=== PATIENT | male | born 1985 | race American Indian/Alaskan Native ===

== ENCOUNTER 2021-12-10 08:25 | Emergency (ER) | payer SELFPAY ==
[2021-12-10 10:20] VITALS: BP 122/75
--- NOTE | 2021-12-10 10:31 | Emergency Department Report ---
Chief Complaint: Nausea/Vomiting/Diarrhea Stated Complaint: VOMITING/SPOTS ON HANDS X 2 WEEKS Time Seen by Provider: 12/10/21 10:30 - HPI History of Present Illness: here with chronic appearing rash on b hands and n/v - last time yesterday requesting work note ambulatory and nad - ROS Review of Systems: rash- chronic n/v yesterday - Exam Vital Signs: Vital Signs 12/10/21 10:19 Temperature 98.0 F Pulse Rate 68 Respiratory 18 Rate Blood Pressure 122/75 [Right] O2 Sat by Pulse 99 Oximetry Physical Exam: a/o chronic appearing rash b hands abd snt no penile dc no back pain no fever or chills taking po MSE screening note: Focused history and physical exam performed. Due to findings the following was ordered: mse to pcp verbalizes understanding of plan of care ED Disposition for MSE Clinical Impression: Wellness examination Disposition: 01 HOME / SELF CARE / HOMELESS Is pt being admited?: No Does the pt Need Aspirin: No Condition: Stable Referrals: [facility] [Outside] - 3-5 Days Forms: Work/School Release Form(ED) Time of Disposition: 10:31
== END 2021-12-10 10:47 | disposition home or self-care (01) ==
LOC: ED 08:25
DX: Z00.00 Encounter for general adult medical examination without abnormal findings (principal); R21 Rash and other nonspecific skin eruption
CPT/HCPCS: 99282

== ENCOUNTER 2022-01-18 21:42 | Emergency (ER) | payer SELFPAY ==
--- NOTE | 2022-01-18 22:35 | XRay Report ---
LEFT FOOT 3 VIEWS INDICATION / CLINICAL INFORMATION: INJURY. COMPARISON: None available. FINDINGS: BONES / JOINT(S): No acute fracture or subluxation. No significant arthritis. SOFT TISSUES: No significant abnormality. ADDITIONAL FINDINGS: None. IMPRESSION: 1. No acute findings. Signer Name: Pj Browning MD Signed: 01/18/2022 10:31 PM Workstation Name: [id number]
[2022-01-19] MEDS ORDERED: ACETAMINOPHEN 325 MG TAB PO ONE (01:34)
[2022-01-19] MEDS ORDERED: IBUPROFEN 400 MG TAB PO ONE (01:34)
--- NOTE | 2022-01-19 01:38 | Emergency Department Report ---
ED Lower Extremity HPI - General Chief Complaint: Extremity Injury, Lower Stated Complaint: LT FOOT PAIN Time Seen by Provider: 01/19/22 01:14 Source: patient Mode of arrival: Ambulatory Limitations: No Limitations - History of Present Illness Initial Comments: The patient is a 36-year-old gentleman who presents to the ER today with a complaint of nontraumatic foot pain. The foot pain is on the plantar aspect of the left foot. He has not taken any pain medication. He denies additional injuries and complaints -: days(s) Injury: Foot: Left Type of Injury: unknown Severity: mild Worsens With: nothing - Related Data Allergies Allergy/AdvReac Type Severity Reaction Status Date / Time No Known Allergies Allergy Unverified 12/10/21 10:16 ED Review of Systems ROS: Stated complaint: LT FOOT PAIN Other details as noted in HPI Comment: All other systems reviewed and negative Musculoskeletal: as per HPI, other (Left foot pain) ED Physical Exam - General Limitations: No Limitations General appearance: alert, in no apparent distress - Head Head exam: Present: atraumatic, normocephalic - Eye Eye exam: Present: normal appearance, EOMI. Absent: nystagmus - ENT ENT exam: Present: normal exam, normal orophraynx, mucous membranes moist, normal external ear exam - Neck Neck exam: Present: normal inspection, full ROM. Absent: tenderness, meningismus - Respiratory Respiratory exam: Present: normal lung sounds bilaterally. Absent: respiratory distress, wheezes, rales, rhonchi, stridor, decreased breath sounds - Cardiovascular Cardiovascular Exam: Present: normal rhythm, bradycardia, normal heart sounds. Absent: tachycardia, irregular rhythm, systolic murmur, diastolic murmur, rubs, gallop - GI/Abdominal GI/Abdominal exam: Present: soft. Absent: distended, tenderness, guarding, rebound, rigid, pulsatile mass - Rectal Rectal exam: Present: deferred - Extremities Exam Extremities exam: Present: normal inspection, full ROM, normal capillary refill, other (2+ pulses noted in the bilateral upper and lower extremities. There is no palpable cord. negative Homans sign. Muscular compartments are soft. The pelvis is stable.). Absent: pedal edema, calf tenderness - Back Exam Back exam: Present: normal inspection, full ROM. Absent: tenderness, CVA tenderness (R), CVA tenderness (L), paraspinal tenderness, vertebral tenderness - Neurological Exam Neurological exam: Present: alert, oriented X3, normal gait, other (No facial droop. Tongue midline. Extraocular movements intact bilaterally. Facial sensation intact to light touch in V1, V2, V3 distribution bilaterally. 5 and a 5 strength in 4 extremities. Sensation intact to light touch in 4 extremities.). Absent: motor sensory deficit - Psychiatric Psychiatric exam: Present: normal affect, normal mood - Skin Skin exam: Present: warm, dry, intact, normal color. Absent: rash ED Course Vital Signs 01/18/22 01/19/22 21:58 02:41 Temperature 97.9 F Pulse Rate 56 L 62 Respiratory 18 12 Rate Blood Pressure 119/78 Blood Pressure 122/72 [Right] O2 Sat by Pulse 99 100 Oximetry ED Lower Extremity MDM - Lab Data Vital Signs 01/18/22 21:58 Temperature 97.9 F Pulse Rate 56 L Respiratory 18 Rate Blood Pressure 119/78 O2 Sat by Pulse 99 Oximetry - Radiology Data Radiology results: pending, report reviewed, image reviewed LEFT FOOT 3 VIEWS INDICATION / CLINICAL INFORMATION: INJURY. COMPARISON: None available. FINDINGS: BONES / JOINT(S): No acute fracture or subluxation. No significant arthritis. SOFT TISSUES: No significant abnormality. ADDITIONAL FINDINGS: None. IMPRESSION: 1. No acute findings. Signer Name: Pj Browning MD Signed: 01/18/2022 9:31 PM - Medical Decision Making Differential diagnosis, including but not limited to: Sprain, strain, plantar fasciitis, foot pain Assessment and plan: 36-year-old gentleman, who is afebrile, with reassuring vital signs, clinically sober, with a GCS of 15, with a complaint of isolated left-sided foot pain. His foot is nontender. His examination is unremarkable. X-rays show no fracture or dislocation. Weightbearing as tolerated, supportive footwear, [id number] Tylenol and Motrin. Of note, when I walked into the room to evaluate the patient, he is on his cell phone, on a chat application, and in no acute distress Critical care attestation.: If time is entered above; I have spent that time in minutes in the direct care of this critically ill patient, excluding procedure time. ED Disposition Clinical Impression: Left foot pain Disposition: HOME / SELF CARE / HOMELESS Is pt being admited?: No Does the pt Need Aspirin: No Condition: Good Instructions: Foot Pain Additional Instructions: Participate in physical activities as tolerated. Weightbearing as tolerated. Patient may take Motrin [id number], 400 mg by mouth, with food, every 6 hours as needed for pain, alternating with Tylenol, 650 mg by mouth, every 4-6 hours as needed for physical pain. Alternate ice packs and heat packs as needed for physical pain. Wear supportive footwear. Avoid strenuous physical activity. 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 Please return to the emergency room right away with new pain, worsened pain, migration of pain, projectile vomiting, change in mental status, confusion, inability tolerate liquid feeds, new, worsened or different symptoms not present on the initial emergency room evaluation Referrals: YANET OWUSU DPM [Staff Physician] - as needed Forms: Work/School Release Form(ED)
[2022-01-19 02:42] VITALS: BP 122/72
== END 2022-01-19 02:42 | disposition home or self-care (01) ==
LOC: ED 21:42
DX: M79.672 Pain in left foot (principal)
CPT/HCPCS: 99283

== ENCOUNTER 2022-06-17 05:52 | Emergency (ER) | payer SELFPAY ==
[2022-06-17 07:31] VITALS: BP 145/85
[2022-06-17] MEDS ORDERED: IBUPROFEN 800 MG TAB PO ONE (08:09)
[2022-06-17] MEDS ORDERED: MORPHINE 4 MG/1 ML INJ IM ONE (08:09)
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
== END 2022-06-17 10:11 | disposition home or self-care (01) ==
LOC: ED 05:52
DX: M54.2 Cervicalgia (principal); M54.6 Pain in thoracic spine; M54.50 Low back pain, unspecified; Z79.899 Other long term (current) drug therapy; V87.7XXA Person injured in collision between other specified motor vehicles (traffic), initial encounter; Y93.89 Activity, other specified; Y92.488 Other paved roadways as the place of occurrence of the external cause; Y99.8 Other external cause status
CPT/HCPCS: 72040; 72070; 72100; 96372; 99283; J2270